=== PATIENT | female | born 1950 | race Caucasian/White ===

== ENCOUNTER 2023-11-16 10:29 | Outpatient (AMB) | payer MEDICARE, SELFPAY ==
--- NOTE | 2023-11-16 10:50 | A.OFFPC_ITS ---
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 Intake Note: New patient visit Allergies metformin Allergy (Mild, Verified 11/16/23 10:51) Rash methimazole [From Tapazole] Allergy (Mild, Verified 11/16/23 10:51) Rash Medication List - Last Reconciled 11/16/23 by Brigid Cardenas PA-C semaglutide (Ozempic) 0.25 mg (0.368 mL) subcut QWEEK Tobacco use date assessed: 11/16/23 Fall risk assessment: No Falls in past year Last assessed Fall Risk: 11/16/23 Dental Screening Dental Screen Date: 11/16/23 Did you have a dental visit in the last 12 months?: Yes Did you have a dental problem in the last 6 months where you did not have access to dental care?: No Was dental information given to patient?: Patient has dentist 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 She is transferring from [facility]. Endo: DM- She states that she is on januvia 100 mg and jardiance 10 mg. She was also on metformin 500 mg twice a day however states that since I left [facility] she has been unable to have this refilled by [facility]. She has been out of this for the last month and has not noticed any significant change in her blood sugar. States that her blood sugar this morning was about 130. She wants to stay off of the metformin because it causes GI upset and diarrhea. The extended-release also caused hives. She denies any frequent UTIs or yeast infections. No abdominal pain. Last a1c was 8. She goes annually for eyes, UTD. hypothyroid- on levothyroxine 112 mcg. Last TSH was WNL CV: Bp today is 138/68. She is on lisinopril 5 mg. Denies any chest pain or shortness a breath. Mammogram: June 2023 and wnl Bone density: Up-to-date Colonoscopy: UTD, PFSH Medical History (Updated 11/16/23 @ 14:54 by Brigid Cardenas PA-C) Hypothyroidism (acquired) Hypertension Poorly controlled type 2 diabetes mellitus Family History (Updated 11/16/23 @ 10:53 by Carmen Broderick CMA) Other Substance abuse Social History (Updated 11/16/23 @ 10:53 by Carmen Broderick CMA) Housing: House Patient Tobacco Use Status: Never used Tobacco e-Cigarette/Vaping Use: Never Used service: No Current occupational status: retired Cognitive needs: No Hearing needs: Yes (hearing aid, hard time hearing ) Vision needs: No Questionnaire PHQ-9 Over the last 2 weeks, how often have you been bothered by any of the following problems? 1. Little interest or pleasure in doing things: not at all 2. Feeling down, depressed, or hopeless: not at all 3. Trouble falling or staying asleep, or sleeping too much: not at all 4. Feeling tired or having little energy: not at all 5. Poor appetite or overeating: not at all 6. Feeling bad about yourself - or that you are a failure or have let yourself or your family down: not at all 7. Trouble concentrating on things, such as reading the newspaper or watching television: not at all 8. Moving or speaking so slowly that other people could have noticed. Or the opposite - being so fidgety or restless that you have been moving around a lot m ore than usual: not at all 9. Thoughts that you would be better off or of hurting yourself in some way: not at all Total score: 0 Depression Screening Interpretation: Negative Depression Screening Done: Yes 70180 - PHQ-9 Billing: Yes Source: Developed by Drs. Mike Allison, Kayla Lnada, Nikhil Zafar and colleagues, with an educational jyothi from [employer]. Thrive Questionnaire Date Thrive assessed: 11/16/23 I am a: Patient What is your living situation today?: I have a steady place to live Within the past 12 months, did the food you bought not last and you didn't have the money to get more?: Never true Within the past 12 months, did you worry whether your food would run out before you got money to buy more?: Never true Do you have trouble paying for medicines?: No Do you have trouble getting transportation to medical appointments?: No Do you have trouble paying your heating and electricity bill?: No Do you have trouble taking care of your child, family member or friend?: No Do you have trouble with day-to-day activities such as bathing, preparing meals, shopping, managing finances, etc.?: No Are you currently unemployed and looking for a job?: No Are you interested in more education?: No Please select the resources that you would like help with: None Currently or been in a relationship where the following occur: no concerns reported THRIVE Score: 0 AUDIT C Alcohol Use Questionnaire (AUDIT-C) 1. How often do you have a drink containing alcohol?: Never 3. How often do you have six or more drinks on one occasion?: Never Total Score: 0 LANG-7 AMB Questionnaire LANG-7 Date LANG - 7 assessed: 11/16/23 Feeling nervous, anxious, or on edge: 0 = Not at all Not being able to stop or control worryin = Not at all Worrying too much about different things: 0 = Not at all Trouble relaxin = Not at all Being so restless that it is hard to sit still: 0 = Not at all Becoming easily annoyed or irritable: 0 = Not at all Source: Developed by Drs. Mike Allison, Kayla Landa, Nikhil Zafar and colleagues, with an educational jyothi from [employer]. LANG-7 Assessment Billing LANG-7 Assessment Tool: LANG-7 Assessment 54734 Physical exam (Primary Care) Vital Signs: Last Vital Signs Temp 97.8 F 11/16/23 10:53 Pulse 49 L 11/16/23 10:53 BP 138/68 11/16/23 10:53 Pulse Ox 96 11/16/23 10:53 Oxygen Delivery Method Room Air 11/16/23 10:53 BMI result Body Mass Index 30.2 Tobacco/Smoking Status: Tobacco use Status Tobacco use date assessed 11/16/23 11/16/23 10:58 Patient Tobacco Use Status Never used Tobacco 11/16/23 10:58 e-Cigarette/Vaping Use Never Used 11/16/23 10:58 PHQ-9: PHQ-9 Score PHQ-9: Total score 0 11/16/23 14:14 Depression Screening Interpretation: Negative Thrive Assessment: Date of Thrive Assessment Date Thrive assessed 11/16/23 11/16/23 14:14 Currently or been in a relationship where the following occur: no concerns reported Const Orientation/consciousness: patient oriented x3 HENMT Ears: hearing grossly normal bilaterally Neck Thyroid: Thyroid normal Lymphatic: no lymphadenopathy noted Resp Auscultation: clear to auscultation bilaterally Cardio Rate: regular rate Rhythm: regular rhythm Heart sounds: S1 normal heart sound present and S2 normal heart sound present GI Inspection: Yes normal to inspection Palpation (GI): Soft to palpation and Other GI palpation findings present (nontender, no cva tenderness) Auscultation: normoactive bowel sounds Rectal Exam - Female: deferred Skin General skin exam: no rashes or lesions noted Neuro General: patient oriented x3, gait normal and no focal motor deficits Assessment and Plan Assessment & Plan (1) Poorly controlled type 2 diabetes mellitus: Code(s): E11.65 - Type 2 diabetes mellitus with hyperglycemia Plan: We will discontinue Januvia. I will stop the metformin as well. I will start her on Ozempic. Discussed risks and benefits and adverse effects of this medication including nausea, vomiting, increased risk of pancreatitis and thyroid malignancy. We will plan to slowly taper up. She can continue with the Jardiance. We discussed a diabetic diet. (2) Hypertension: Code(s): I10 - Essential (primary) hypertension Qualifiers: Hypertension type: primary hypertension Qualified Code(s): I10 - Essential (primary) hypertension Plan: Due to have refill on lisinopril. We will do this today. (3) Hypothyroidism (acquired): Code(s): E03.9 - Hypothyroidism, unspecified Plan: TSH ordered. Levothyroxine refilled. Orders: Orders Complete Blood Count Auto Diff Today E03.9 - Hypothyroidism, unspecified, E11.65 - Type 2 diabetes mellitus with hyperglycemia, I10 - Essential (primary) hypertension Comprehensive [place]. Panel Fast Today E03.9 - Hypothyroidism, unspecified, E11.65 - Type 2 diabetes mellitus with hyperglycemia, I10 - Essential (primary) hypertension Lipid Panel Today E03.9 - Hypothyroidism, unspecified, E11.65 - Type 2 diabetes mellitus with hyperglycemia, I10 - Essential (primary) hypertension Microalbumin, Random (w Creat) Today E03.9 - Hypothyroidism, unspecified, E11.65 - Type 2 diabetes mellitus with hyperglycemia, I10 - Essential (primary) hypertension Hemoglobin A1c Today E03.9 - Hypothyroidism, unspecified, E11.65 - Type 2 diabetes mellitus with hyperglycemia, I10 - Essential (primary) hypertension TSH reflex Free T4 Today E03.9 - Hypothyroidism, unspecified, E11.65 - Type 2 diabetes mellitus with hyperglycemia, I10 - Essential (primary) hypertension Medications: New semaglutide (Ozempic) for 4 weeks 0.25 mg (0.368 mL) subcut QWEEK 3 mL 3RF levothyroxine 112 mcg PO DAILY 90 tabs 3RF empagliflozin (Jardiance) 10 mg PO DAILY 90 tabs 3RF lisinopril 5 mg PO DAILY 90 tabs 3RF Coding Level of Care Code Est Pt Level 4 (83689) Complex EM visit Add On G2211 Diagnoses Poorly controlled type 2 diabetes mellitus E11.65 Primary hypertension I10 Hypertension type: primary hypertension Hypothyroidism (acquired) E03.9 Additional Codes LANG-7 Assessment Billing - LANG-7 Assessment Tool: LANG-7 Assessment [id number] ([id number])
[2023-11-16 10:53] VITALS: BP 138/68; PULSE 54; TEMP 36.6; O2SAT 96; BMI 30.2
== END 2023-11-16 11:19 | disposition home or self-care (01) ==
PROVIDERS: PCP Physician Assistant; Visit Provider Physician Assistant
DX: E11.65 Type 2 diabetes mellitus with hyperglycemia (principal); I10 Essential (primary) hypertension; E03.9 Hypothyroidism, unspecified
CPT/HCPCS: 99214; G2211

== ENCOUNTER 2023-11-17 07:26 | Outpatient (REF) | payer MEDICARE, SELFPAY ==
[2023-11-17 11:49] LABS: MANUAL DIFF FLAG NO
[2023-11-17 11:54] LABS: Basophils Absolute Auto 0.1 X10*3/uL (0.0-0.2); Basophils Percent Auto 0.7 % (0-2); Eosinophils Absolute Auto 0.2 X10*3/uL (0.0-0.4); Eosinophils Percent Auto 2.6 % (0-4); Hematocrit 40.7 % (37.0-47.0); Hemoglobin 13.2 g/dl (12.0-16.0); Imm Gran Abs Auto 0.02 X10*3/uL (0.00-0.03); Imm Gran Pct Auto 0.3 % (0.0-0.4); Lymphocytes Absolute Auto 2.2 X10*3/uL (1.2-4.9); Lymphocytes Percent Auto 31.4 % (20-40); Mean Corpuscular HGB Conc 32.4 g/dl (31.0-35.0); Mean Corpuscular Hemoglobin 30.1 pg (27.0-33.0); Mean Corpuscular Volume 92.9 fL (80.0-98.0); Mean Platelet Volume 10.4 fL (9.4-12.3); Monocytes Absolute Auto 0.7 X10*3/uL (0.1-1.2); Neutrophils Absolute Auto 3.8 x10*3/uL (2.0-8.3); Platelet Count 259 X10*3/uL (160-400); Red Blood Count 4.38 X10*6/uL (4.20-5.50); Red Cell Distribution Width 13.5 % (11.0-16.0); White Blood Count 6.9 X10*3/uL (4.8-10.8)
[2023-11-17 12:02] LABS: Estimated Average Glucose 169 mg/dL; Hemoglobin A1c % 7.5 % (<6.0)
[2023-11-17 12:24] LABS: Alanine Aminotransferase 12 U/L (0-31); Albumin Level 4.1 g/dL (3.5-5.0); Alkaline Phosphatase 68 U/L (39-117); Anion Gap 12 (12-20); Aspartate Amino Transferase 15 U/L (5-31); Bilirubin Total 0.5 mg/dL (0.0-1.0); Blood Urea Nitrogen 17 mg/dL (9-16); Calcium 9.7 mg/dL (8.4-10.2); Carbon Dioxide 26 mmol/L (22-29); Chloride 104 mmol/L (96-108); Cholesterol 246 mg/dL (<200); Estimated Glomerular Filt Rate > 60; Glucose Fasting 147 mg/dL (60-99); HDL Cholesterol 72 mg/dL (>40); LDL Cholesterol Calculated 149 mg/dL (<100); Potassium 4.4 mmol/L (3.3-5.1); Sodium 138 mmol/L (135-145); Total Protein 7.3 g/dL (6.5-8.0); Triglycerides 125 mg/dL (<150)
[2023-11-17 12:33] LABS: TSH reflex Free T4 4.91 uIU/mL (0.32-4.0)
[2023-11-17 12:49] LABS: Creatinine Urine 30.79 mg/dL; Microalbumin Urine < 5.0 mg/L
[2023-11-17 13:07] LABS: Free T4 (Free Thyroxine) 1.12 ng/dL (0.71-1.85)
== END 2023-11-17 07:27 | disposition home or self-care (01) ==
LOC: HO.WFDLDS 07:26
PROVIDERS: Visit Provider Physician Assistant
DX: E03.9 Hypothyroidism, unspecified (principal); I10 Essential (primary) hypertension; E11.65 Type 2 diabetes mellitus with hyperglycemia
CPT/HCPCS: 36415; 80053; 80061; 82043; 82570; 83036; 84439; 84443; 85025

== ENCOUNTER 2023-12-21 08:16 | Outpatient (AMB) | payer MEDICARE, SELFPAY ==
--- NOTE | 2023-12-21 08:21 | MHC.PC.OV ---
Vital Signs 12/21/23 08:23 Pulse 53 Pulse Source Pulse Oximeter Pulse Oximetry (%) 94 Oxygen Delivery Method Room Air Intake Visit Reasons: DM Intake Note: Follow up. A1c was 7.5 on 11/17/23. Did not get increase in thyroid medication, we were not able to connect on the phone. Desk Top Publisher Required: No Allergies metformin Allergy (Mild, Verified 12/21/23 08:22) Rash methimazole [From Tapazole] Allergy (Mild, Verified 12/21/23 08:22) Rash Medication List - Last Reconciled 12/21/23 by Brigid Cardenas PA-C empagliflozin (Jardiance) 10 mg PO DAILY levothyroxine 125 mcg PO DAILY lisinopril 5 mg PO DAILY Tobacco use date assessed: 11/16/23 Dental Screening Dental Screen Date: 11/16/23 HPI DM HPI Details Pt is a 73 y/o female with a significant past medical history of type 2 diabetes, hypertension, hypothyroidism who presents today to [facility]. She is transferring from [facility]. Endo: DM- She was recently started on ozempic and continued on jardiance 10 mg. Metformin caused too much GI distress. The extended-release also caused hives. denies any frequent UTIs or yeast infections. No abdominal pain. Last a1c was 7.5. She goes annually for eyes, UTD. hypothyroid- was tsh was elevated in October. Increased dosage of the levothyroxine to 125 mcg. Tolerating well. CV: Bp today is WNL. She is on lisinopril 5 mg. Denies any chest pain or shortness a breath. Last cholesterol was elevated. declines medications Mammogram: June 2023 and wnl Bone density: Up-to-date Colonoscopy: UTD, [facility] Medical History (Updated 12/21/23 @ 09:00 by Brigid Cardenas PA-C) Dyslipidemia Hypothyroidism (acquired) Hypertension Poorly controlled type 2 diabetes mellitus Family History (Updated 11/16/23 @ 10:53 by Carmen Broderick CMA) Other Substance abuse Social History (Updated 11/16/23 @ 10:53 by Carmen Broderick CMA) Housing: House Patient Tobacco Use Status: Never used Tobacco e-Cigarette/Vaping Use: Never Used service: No Current occupational status: retired Cognitive needs: No Hearing needs: Yes (hearing aid, hard time hearing ) Vision needs: No Questionnaire Thrive Questionnaire Date Thrive assessed: 11/16/23 LANG-7 AMB Questionnaire LANG-7 Date LANG - 7 assessed: 11/16/23 Source: Developed by Drs. Mike Allison, Kayla Landa, Nikhil Zafar and colleagues, with an educational jyothi from [employer]. Physical exam (Primary Care) Vital Signs: Last Vital Signs Pulse 53 12/21/23 08:23 Pulse Ox 94 12/21/23 08:23 Oxygen Delivery Method Room Air 12/21/23 08:23 Tobacco/Smoking Status: Tobacco use Status Tobacco use date assessed 11/16/23 12/21/23 08:21 Patient Tobacco Use Status Never used Tobacco 12/21/23 08:21 e-Cigarette/Vaping Use Never Used 12/21/23 08:21 Thrive Assessment: Date of Thrive Assessment Date Thrive assessed 11/16/23 12/21/23 08:21 Const Orientation/consciousness: patient oriented x3 Neck Neck: Yes no lymphadenopathy Thyroid: Thyroid normal Carotids: no bruits Resp Auscultation: clear to auscultation bilaterally Cardio Rate: regular rate Rhythm: regular rhythm Heart sounds: S1 normal heart sound present and S2 normal heart sound present Peripheral pulses: dorsalis pedis present Neuro General: patient oriented x3, gait normal and no focal motor deficits Extrem General: Yes normal to inspection Results Reviewed Results Reviewed: Laboratory Tests 11/17/23 07:27 Hemoglobin A1c % 7.5 H Triglycerides 125 Cholesterol 246 H LDL Cholesterol, Calc 149 H HDL Cholesterol 72 TSH 4.91 H Free T4 1.12 Assessment and Plan Assessment & Plan (1) Poorly controlled type 2 diabetes mellitus: Code(s): E11.65 - Type 2 diabetes mellitus with hyperglycemia Plan: increase ozempic to 0.5 mg weekly. start glipizide 5 mg er. discussed risks and benefits and adverse effects such as hypoglycemia. return in 1 month with labs prior (2) Hypertension: Code(s): I10 - Essential (primary) hypertension Qualifiers: Hypertension type: primary hypertension Qualified Code(s): I10 - Essential (primary) hypertension Plan: continue current plan. (3) Hypothyroidism (acquired): Code(s): E03.9 - Hypothyroidism, unspecified Plan: recheck tsh prior to next appointment (4) Dyslipidemia: Code(s): E78.5 - Hyperlipidemia, unspecified Plan: will try diet changes, suspects it will be a bit easier now that she is on ozempic. will check in 6 months. declines medication. Orders: Orders Comprehensive Met. Panel Today E03.9 - Hypothyroidism, unspecified, E11.65 - Type 2 diabetes mellitus with hyperglycemia, I10 - Essential (primary) hypertension Hemoglobin A1c Today E03.9 - Hypothyroidism, unspecified, E11.65 - Type 2 diabetes mellitus with hyperglycemia, I10 - Essential (primary) hypertension Medications: New semaglutide (Ozempic) 0.5 mg (0.736 mL) subcut QWEEK 3 mL 3RF glipizide ER 5 mg PO DAILY 90 tabs 1RF Coding Level of Care Code Est Pt Level 4 (62935) Complex EM visit Add On G2211 Diagnoses Poorly controlled type 2 diabetes mellitus E11.65 Primary hypertension I10 Hypertension type: primary hypertension Hypothyroidism (acquired) E03.9 Dyslipidemia E78.5
[2023-12-21 08:23] VITALS: PULSE 53; O2SAT 94
== END 2023-12-21 09:01 | disposition home or self-care (01) ==
PROVIDERS: PCP Physician Assistant; Visit Provider Physician Assistant
DX: E11.65 Type 2 diabetes mellitus with hyperglycemia (principal); I10 Essential (primary) hypertension; E03.9 Hypothyroidism, unspecified; E78.5 Hyperlipidemia, unspecified
CPT/HCPCS: 99214; G2211

== ENCOUNTER 2024-01-23 07:40 | Outpatient (REF) | payer MEDICARE, SELFPAY ==
[2024-01-23 11:41] LABS: Estimated Average Glucose 157 mg/dL; Hemoglobin A1c % 7.1 % (<6.0)
[2024-01-23 12:25] LABS: Alanine Aminotransferase 12 U/L (0-31); Alkaline Phosphatase 61 U/L (39-117); Anion Gap 14 (12-20); Aspartate Amino Transferase 13 U/L (5-31); Bilirubin Total 0.4 mg/dL (0.0-1.0); Blood Urea Nitrogen 17 mg/dL (9-16); Calcium 9.9 mg/dL (8.4-10.2); Carbon Dioxide 26 mmol/L (22-29); Chloride 105 mmol/L (96-108); Estimated Glomerular Filt Rate > 60; Glucose Random 121 mg/dL (60-115); Potassium 4.8 mmol/L (3.3-5.1); Sodium 140 mmol/L (135-145); Total Protein 7.2 g/dL (6.5-8.0)
[2024-01-23 12:41] LABS: TSH reflex Free T4 0.89 uIU/mL (0.32-4.0)
== END 2024-01-23 07:41 | disposition home or self-care (01) ==
LOC: HO.WFDLDS 07:40
PROVIDERS: Visit Provider Physician Assistant
DX: E03.9 Hypothyroidism, unspecified (principal); E11.65 Type 2 diabetes mellitus with hyperglycemia; I10 Essential (primary) hypertension
CPT/HCPCS: 36415; 80053; 83036; 84443

== ENCOUNTER 2024-01-25 08:22 | Outpatient (AMB) | payer MEDICARE, SELFPAY ==
--- NOTE | 2024-01-25 08:28 | MHC.PC.OV ---
Vital Signs 01/25/24 08:33 Height 5 ft 3.07 in Weight 169 lb 8 oz BMI 30.0 BP 122/58 L Blood Pressure Location Lt brachial Position Sitting Respiration 14 Pulse 63 Pulse Source Pulse Oximeter Pulse Oximetry (%) 99 Oxygen Delivery Method Room Air Intake Visit Reasons: dm and thyroid Intake Note: Follow up. Lab results Quantitative Equity Head Required: No Allergies metformin Allergy (Mild, Verified 01/25/24 08:33) Rash methimazole [From Tapazole] Allergy (Mild, Verified 01/25/24 08:33) Rash Medication List - Last Reconciled 01/25/24 by Brigid Cardenas PA-C empagliflozin (Jardiance) 10 mg PO DAILY levothyroxine 125 mcg PO DAILY lisinopril 5 mg PO DAILY Tobacco use date assessed: 11/16/23 Dental Screening Dental Screen Date: 11/16/23 HPI dm and thyroid HPI Details Pt is a 73 y/o female with a significant past medical history of type 2 diabetes, hypertension, hypothyroidism who presents today to [facility]. She is transferring from [facility]. Endo: DM- She was recently started on ozempic and continued on jardiance 10 mg and glipizide. Her A1c went from 7.5 to 7.1. No hypoglycemic events. Metformin caused too much GI distress. The extended-release also caused hives. denies any frequent UTIs or yeast infections. No abdominal pain. Last a1c was 7.5. She goes annually for eyes, UTD. hypothyroid- was tsh was elevated in October and now normal. Increased dosage of the levothyroxine to 125 mcg. Tolerating well. CV: Bp today is 122/58. She is on lisinopril 5 mg. Denies any chest pain or shortness a breath. Last cholesterol was elevated. declines medications Mammogram: June 2023 and wnl Bone density: 2 years ago Colonoscopy: UTD, [facility] Medical History (Updated 12/21/23 @ 09:00 by Brigid Cardenas PA-C) Dyslipidemia Hypothyroidism (acquired) Hypertension Poorly controlled type 2 diabetes mellitus Family History (Updated 11/16/23 @ 10:53 by Carmen Broderick CMA) Other Substance abuse Social History (Updated 11/16/23 @ 10:53 by Carmen Broderick CMA) Housing: House Patient Tobacco Use Status: Never used Tobacco e-Cigarette/Vaping Use: Never Used service: No Current occupational status: retired Cognitive needs: No Hearing needs: Yes (hearing aid, hard time hearing ) Vision needs: No Questionnaire Thrive Questionnaire Date Thrive assessed: 11/16/23 LANG-7 AMB Questionnaire LANG-7 Date LANG - 7 assessed: 11/16/23 Source: Developed by Drs. Mike Allison, Kayla Landa, Nikhil Zafar and colleagues, with an educational jyothi from [employer]. Physical exam (Primary Care) Vital Signs: Last Vital Signs Pulse 63 01/25/24 08:33 Resp 14 01/25/24 08:33 BP 122/58 L 01/25/24 08:33 Pulse Ox 99 01/25/24 08:33 Oxygen Delivery Method Room Air 01/25/24 08:33 BMI result Body Mass Index 30.0 Tobacco/Smoking Status: Tobacco use Status Tobacco use date assessed 11/16/23 01/25/24 08:32 Patient Tobacco Use Status Never used Tobacco 01/25/24 08:32 e-Cigarette/Vaping Use Never Used 01/25/24 08:32 Thrive Assessment: Date of Thrive Assessment Date Thrive assessed 11/16/23 01/25/24 08:32 Const Orientation/consciousness: patient oriented x3 Neck Neck: Yes no lymphadenopathy Thyroid: Thyroid normal Carotids: no bruits Resp Auscultation: clear to auscultation bilaterally Cardio Rate: regular rate Rhythm: regular rhythm Heart sounds: S1 normal heart sound present and S2 normal heart sound present Peripheral pulses: dorsalis pedis present Neuro General: patient oriented x3, gait normal and no focal motor deficits Extrem General: Yes normal to inspection Results Reviewed Results Reviewed: Laboratory Tests 11/17/23 01/23/24 07:27 07:41 Random Glucose 121 H Estimat Average Glucose 157 Hemoglobin A1c % 7.5 H 7.1 H TSH 4.91 H 0.89 Assessment and Plan Assessment & Plan (1) Poorly controlled type 2 diabetes mellitus: Code(s): E11.65 - Type 2 diabetes mellitus with hyperglycemia Plan: start ozempic 1 mg weekly. increased jardiance to 25 mg. Stop glipizide. return in 3 months to recheck labs and f.u (2) Hypertension: Code(s): I10 - Essential (primary) hypertension Qualifiers: Hypertension type: primary hypertension Qualified Code(s): I10 - Essential (primary) hypertension Plan: continue current plan (3) Hypothyroidism (acquired): Code(s): E03.9 - Hypothyroidism, unspecified Plan: tsh wnl now Plan bone density ordered Orders: Orders Comprehensive [place]. Panel Fast Today E03.9 - Hypothyroidism, unspecified, E11.65 - Type 2 diabetes mellitus with hyperglycemia, I10 - Essential (primary) hypertension Hemoglobin A1c Today E03.9 - Hypothyroidism, unspecified, E11.65 - Type 2 diabetes mellitus with hyperglycemia, I10 - Essential (primary) hypertension XR DEXA axial skeleton Today Z78.0 - Asymptomatic menopausal state Medications: New semaglutide (Ozempic) 1 mg (0.75 mL) subcut QWEEK 3 mL 4RF empagliflozin (Jardiance) 25 mg PO DAILY 90 tabs 3RF Discontinued empagliflozin (Jardiance) Discontinued Reason: Doctor's Order 10 mg PO DAILY 90 tabs 3RF Coding Level of Care Code Est Pt Level 4 (77828) Complex EM visit Add On G2211 Diagnoses Poorly controlled type 2 diabetes mellitus E11.65 Primary hypertension I10 Hypertension type: primary hypertension Hypothyroidism (acquired) E03.9
[2024-01-25 08:33] VITALS: BP 122/58; PULSE 63; RESP 14; O2SAT 99
== END 2024-01-25 09:38 | disposition home or self-care (01) ==
PROVIDERS: PCP Physician Assistant; Visit Provider Physician Assistant
DX: E11.65 Type 2 diabetes mellitus with hyperglycemia (principal); I10 Essential (primary) hypertension; E03.9 Hypothyroidism, unspecified
CPT/HCPCS: 99214; G2211

== ENCOUNTER 2024-04-23 07:44 | Outpatient (REF) | payer MEDICARE, SELFPAY ==
[2024-04-23 11:45] LABS: Estimated Average Glucose 157 mg/dL; Hemoglobin A1C 185.8095 umol/L; Hemoglobin A1c % 7.1 % (<6.0)
[2024-04-23 12:18] LABS: Alanine Aminotransferase 15 U/L (0-31); Alkaline Phosphatase 73 U/L (39-117); Anion Gap 8 (12-20); Aspartate Amino Transferase 20 U/L (5-31); Bilirubin Total 0.4 mg/dL (0.0-1.0); Blood Urea Nitrogen 16 mg/dL (9-16); Calcium 8.7 mg/dL (8.4-10.2); Carbon Dioxide 29 mmol/L (22-29); Chloride 105 mmol/L (96-108); Estimated Glomerular Filt Rate > 60; Glucose Fasting 137 mg/dL (60-99); Potassium 4.6 mmol/L (3.3-5.1); Sodium 137 mmol/L (135-145)
== END 2024-04-23 07:45 | disposition home or self-care (01) ==
LOC: HO.WFDLDS 07:44
PROVIDERS: Visit Provider Physician Assistant
DX: E11.65 Type 2 diabetes mellitus with hyperglycemia (principal); I10 Essential (primary) hypertension; E03.9 Hypothyroidism, unspecified
CPT/HCPCS: 36415; 80053; 83036

== ENCOUNTER 2024-04-26 08:33 | Outpatient (AMB) | payer MEDICARE, SELFPAY ==
--- NOTE | 2024-04-26 08:54 | MHC.PC.OV ---
Vital Signs 04/26/24 08:57 Height 5 ft 3.07 in Weight 167 lb 2 oz BMI 29.5 BP 110/68 Blood Pressure Location Lt brachial Pulse 45 L Pulse Source Pulse Oximeter Pulse Oximetry (%) 95 Oxygen Delivery Method Room Air Intake Visit Reasons: DM Intake Note: Diabetes follow up Allergies metformin Allergy (Mild, Verified 04/26/24 08:55) Rash methimazole [From Tapazole] Allergy (Mild, Verified 04/26/24 08:55) Rash Medication List - Last Reconciled 04/26/24 by Brigid Cardenas PA-C empagliflozin (Jardiance) 25 mg PO DAILY levothyroxine 125 mcg PO DAILY lisinopril 5 mg PO DAILY Tobacco use date assessed: 11/16/23 Dental Screening Dental Screen Date: 11/16/23 HPI DM HPI Details Pt is a 73 y/o female with a significant past medical history of type 2 diabetes, hypertension, hypothyroidism who presents today to [facility]. She is transferring from [facility]. Endo: DM- She was recently started on ozempic 1 mg and increased jardiance to 25 mg. She was d/c on glip. No hypoglycemic events. Her A1c remain the same at 7.1. Metformin caused too much GI distress. The extended-release also caused hives. denies any frequent UTIs or yeast infections. No abdominal pain.. She goes annually for eyes, UTD. hypothyroid- was tsh was elevated in October and now normal. Increased dosage of the levothyroxine to 125 mcg. Tolerating well. CV: Bp today is 110/65. Her initial pulse in the office was 45 but it does go up to 55. She states that this is normal for her. She constantly monitors her heart rate at home along with her blood pressure.. She is on lisinopril 5 mg. Denies any chest pain, dizziness, palpitations or shortness a breath. Last cholesterol was elevated. declines medications. Musculoskeletal: She does complain today of right knee pain and stiffness. States that it is worse in the morning and gets better within the 1st few steps. Sometimes it does feel slightly unstable going down stairs but she attributes this to the stiffness. At night it does seem. She has not tried anything for this. She has not like the idea of taking medications. She does not want to go to physical therapy. There was no trauma. This has been going on for quite some time and slowly worsening. Mammogram: June 2023 and wnl Bone density: 2 years ago-states that she needs to call and book this. Colonoscopy: UTD, PFSH Medical History (Updated 04/26/24 @ 11:44 by Brigid Cardenas PA-C) Dyslipidemia Hypothyroidism (acquired) Hypertension Poorly controlled type 2 diabetes mellitus Family History (Updated 11/16/23 @ 10:53 by Carmen Broderick CMA) Other Substance abuse Social History (Updated 11/16/23 @ 10:53 by Carmen Broderick CMA) Housing: House Patient Tobacco Use Status: Never used Tobacco e-Cigarette/Vaping Use: Never Used service: No Current occupational status: retired Cognitive needs: No Hearing needs: Yes (hearing aid, hard time hearing ) Vision needs: No Questionnaire PHQ-9 Over the last 2 weeks, how often have you been bothered by any of the following problems? 1. Little interest or pleasure in doing things: not at all 2. Feeling down, depressed, or hopeless: not at all 4. Feeling tired or having little energy: not at all 5. Poor appetite or overeating: several days 6. Feeling bad about yourself - or that you are a failure or have let yourself or your family down: not at all 7. Trouble concentrating on things, such as reading the newspaper or watching television: not at all 8. Moving or speaking so slowly that other people could have noticed. Or the opposite - being so fidgety or restless that you have been moving around a lot more than usual: not at all 9. Thoughts that you would be better off or of hurting yourself in some way: not at all Source: Developed by Drs. Mike Allison, Kayla Landa, Nikhil Zafar and colleagues, with an educational jyothi from [employer]. Thrive Questionnaire Date Thrive assessed: 11/16/23 I am a: Patient What is your living situation today?: I have a steady place to live Within the past 12 months, did the food you bought not last and you didn't have the money to get more?: Never true Within the past 12 months, did you worry whether your food would run out before you got money to buy more?: Never true Do you have trouble paying for medicines?: No Do you have trouble getting transportation to medical appointments?: No Do you have trouble paying your heating and electricity bill?: No Do you have trouble taking care of your child, family member or friend?: No Do you have trouble with day-to-day activities such as bathing, preparing meals, shopping, managing finances, etc.?: No Are you currently unemployed and looking for a job?: No Are you interested in more education?: No Please select the resources that you would like help with: None Currently or been in a relationship where the following occur: No concerns reported THRIVE Score: 0 AUDIT C Alcohol Use Questionnaire (AUDIT-C) 1. How often do you have a drink containing alcohol?: Never Total Score: 0 LANG-7 AMB Questionnaire LANG-7 Date LANG - 7 assessed: 11/16/23 Feeling nervous, anxious, or on edge: 0 = Not at all Not being able to stop or control worryin = Not at all Worrying too much about different things: 0 = Not at all Trouble relaxin = Not at all Being so restless that it is hard to sit still: 0 = Not at all Becoming easily annoyed or irritable: 0 = Not at all Feeling afraid as if something awful might happen: 0 = Not at all Total LANG-7 score (0-4 normal; 5-9 mild; 10-14 moderate; 15-21 severe): 0 Source: Developed by Drs. Mike Allison, Kayla Landa, Nikhil Zafar and colleagues, with an educational jyothi from [employer]. Physical exam (Primary Care) Vital Signs: Last Vital Signs Pulse 45 L 04/26/24 08:57 BP 110/68 04/26/24 08:57 Pulse Ox 95 04/26/24 08:57 Oxygen Delivery Method Room Air 04/26/24 08:57 BMI result Body Mass Index 29.5 Tobacco/Smoking Status: Tobacco use Status Tobacco use date assessed 11/16/23 04/26/24 08:59 Patient Tobacco Use Status Never used Tobacco 04/26/24 08:59 e-Cigarette/Vaping Use Never Used 04/26/24 08:59 Thrive Assessment: Date of Thrive Assessment Date Thrive assessed 11/16/23 04/26/24 08:59 Currently or been in a relationship where the following occur: No concerns reported Const Orientation/consciousness: patient oriented x3 HENMT Ears: hearing grossly normal bilaterally Neck Thyroid: Thyroid normal Lymphatic: no lymphadenopathy noted Resp Auscultation: clear to auscultation bilaterally Cardio Rate: regular rate Rhythm: regular rhythm Heart sounds: S1 normal heart sound present and S2 normal heart sound present GI Inspection: Yes normal to inspection Palpation (GI): Soft to palpation and Other GI palpation findings present (nontender, no cva tenderness) Auscultation: normoactive bowel sounds Rectal Exam - Female: deferred Skin General skin exam: no rashes or lesions noted Neuro General: patient oriented x3, gait normal and no focal motor deficits Results Reviewed Results Reviewed: Laboratory Tests 11/17/23 04/23/24 07:33 07:46 Sodium 137 Potassium 4.6 Chloride 105 Carbon Dioxide 29 Anion Gap 8 L BUN 16 Creatinine 0.75 Estimated GFR > 60 Fasting Glucose 137 H Estimat Average Glucose 157 Hemoglobin A1c % 7.1 H Calcium 8.7 D AST 20 ALT 15 Alkaline Phosphatase 73 Urine Creatinine 30.79 Urine Microalbumin < 5.0 Microalb/Creat Ratio TNP Coding Level of Care Code Est Pt Level 4 (14227) Complex EM visit Add On G2211 Diagnoses Poorly controlled type 2 diabetes mellitus E11.65 Primary hypertension I10 Hypertension type: primary hypertension Hypothyroidism (acquired) E03.9 Dyslipidemia E78.5 Right knee pain M25.561 Assessment & Plan Assessment & Plan (1) Poorly controlled type 2 diabetes mellitus: Code(s): E11.65 - Type 2 diabetes mellitus with hyperglycemia Category: Medical Plan: Increase Ozempic to 2 mg. Continue with the Jardiance. Denies any hypoglycemic events. Does not want to CGM yet. (2) Hypertension: Code(s): I10 - Essential (primary) hypertension Category: Medical Qualifiers: Hypertension type: primary hypertension Qualified Code(s): I10 - Essential (primary) hypertension Plan: Continue current regimen (3) Hypothyroidism (acquired): Code(s): E03.9 - Hypothyroidism, unspecified Category: Medical Plan: Continue levothyroxine. We will monitor. (4) Dyslipidemia: Code(s): E78.5 - Hyperlipidemia, unspecified Category: Medical Plan: Trying to follow a low-fat diet. Declines statin. (5) Right knee pain: Code(s): M25.561 - Pain in right knee Category: Medical Plan: X-ray ordered. Plan Labs, carotid ultrasound, knee x-ray ordered. We will follow up pending test results. She will follow up in 3 months. Sooner if needed. Patient understands and agrees with the plan. Orders: Orders B Type Natriuretic Peptide Today E03.9 - Hypothyroidism, unspecified, E11.65 - Type 2 diabetes mellitus with hyperglycemia, E78.5 - Hyperlipidemia, unspecified, I10 - Essential (primary) hypertension Complete Blood Count Auto Diff Today E03.9 - Hypothyroidism, unspecified, E11.65 - Type 2 diabetes mellitus with hyperglycemia, E78.5 - Hyperlipidemia, unspecified, I10 - Essential (primary) hypertension TSH reflex Free T4 Today E03.9 - Hypothyroidism, unspecified, E11.65 - Type 2 diabetes mellitus with hyperglycemia, E78.5 - Hyperlipidemia, unspecified, I10 - Essential (primary) hypertension Hemoglobin A1c Today E03.9 - Hypothyroidism, unspecified, E11.65 - Type 2 diabetes mellitus with hyperglycemia, E78.5 - Hyperlipidemia, unspecified, I10 - Essential (primary) hypertension US carotid duplex BI Today E11.65 - Type 2 diabetes mellitus with hyperglycemia, E78.5 - Hyperlipidemia, unspecified, I10 - Essential (primary) hypertension Comprehensive [place]. Panel Fast Today E03.9 - Hypothyroidism, unspecified, E11.65 - Type 2 diabetes mellitus with hyperglycemia, E78.5 - Hyperlipidemia, unspecified, I10 - Essential (primary) hypertension Lipid Panel Today E03.9 - Hypothyroidism, unspecified, E11.65 - Type 2 diabetes mellitus with hyperglycemia, E78.5 - Hyperlipidemia, unspecified, I10 - Essential (primary) hypertension XR knee RT 2V Today M25.561 - Pain in right knee, M25.562 - Pain in left knee Medications: New semaglutide (Ozempic) 2 mg (0.75 mL) subcut QWEEK 3 mL 6RF
[2024-04-26 08:57] VITALS: BP 110/68; PULSE 45; O2SAT 95; BMI 29.5
== END 2024-04-26 09:43 | disposition home or self-care (01) ==
LOC: HO.HMCFM 08:34
PROVIDERS: PCP Physician Assistant; Visit Provider Physician Assistant
DX: E11.65 Type 2 diabetes mellitus with hyperglycemia (principal); I10 Essential (primary) hypertension; E03.9 Hypothyroidism, unspecified; E78.5 Hyperlipidemia, unspecified; M25.561 Pain in right knee

== ENCOUNTER → 2024-04-26 08:33 | Outpatient (BNVA) | payer MEDICARE, SELFPAY | PROVIDERS: PCP Physician Assistant; Visit Provider Physician Assistant | DX: E11.65 Type 2 diabetes mellitus with hyperglycemia (principal); I10 Essential (primary) hypertension; E03.9 Hypothyroidism, unspecified; E78.5 Hyperlipidemia, unspecified; M25.561 Pain in right knee | CPT/HCPCS: 99212 ==

== ENCOUNTER 2024-05-09 15:20 | Outpatient (REF) | payer MEDICARE, SELFPAY | END 2024-05-09 15:21 | disposition home or self-care (01) | LOC: HO.US 15:20 | PROVIDERS: PCP Physician Assistant; Visit Provider Physician Assistant | DX: R42 Dizziness and giddiness (principal); I10 Essential (primary) hypertension; E78.5 Hyperlipidemia, unspecified; E11.65 Type 2 diabetes mellitus with hyperglycemia | CPT/HCPCS: 93880 ==

== ENCOUNTER 2024-07-30 09:33 | Outpatient (REF) | payer MEDICARE, SELFPAY ==
[2024-07-30 11:30] LABS: MANUAL DIFF FLAG NO
[2024-07-30 11:39] LABS: Basophils Percent Auto 0.6 % (0-2); Eosinophils Absolute Auto 0.1 X10*3/uL (0.0-0.4); Eosinophils Percent Auto 1.3 % (0-4); Hematocrit 41.1 % (37.0-47.0); Hemoglobin 13.8 g/dl (12.0-16.0); Imm Gran Abs Auto 0.02 X10*3/uL (0.00-0.03); Imm Gran Pct Auto 0.3 % (0.0-0.4); Mean Corpuscular HGB Conc 33.6 g/dl (31.0-35.0); Mean Corpuscular Hemoglobin 30.1 pg (27.0-33.0); Mean Corpuscular Volume 89.7 fL (80.0-98.0); Mean Platelet Volume 9.7 fL (9.4-12.3); Monocytes Absolute Auto 0.6 X10*3/uL (0.1-1.2); Monocytes Percent Auto 8.7 % (2-11); Neutrophils Absolute Auto 4.2 x10*3/uL (2.0-8.3); Neutrophils Percent Auto 60.1 % (45-73); Platelet Count 274 X10*3/uL (160-400); Red Blood Count 4.58 X10*6/uL (4.20-5.50); Red Cell Distribution Width 13.2 % (11.0-16.0)
[2024-07-30 11:47] LABS: B Type Natriuretic Peptide 34 pg/mL (<100)
[2024-07-30 12:06] LABS: Estimated Average Glucose 154 mg/dL; Hemoglobin A1C 195.2394 umol/L
[2024-07-30 12:23] LABS: Alanine Aminotransferase 10 U/L (0-31); Albumin Level 4.1 g/dL (3.5-5.0); Alkaline Phosphatase 72 U/L (39-117); Anion Gap 13 (12-20); Aspartate Amino Transferase 16 U/L (5-31); Bilirubin Total 0.5 mg/dL (0.0-1.0); Blood Urea Nitrogen 15 mg/dL (9-16); Calcium 9.5 mg/dL (8.4-10.2); Carbon Dioxide 25 mmol/L (22-29); Chloride 105 mmol/L (96-108); Cholesterol 218 mg/dL (<200); Estimated Glomerular Filt Rate > 60; Glucose Fasting 135 mg/dL (60-99); HDL Cholesterol 64 mg/dL (>40); LDL Cholesterol Calculated 129 mg/dL (<100); Potassium 4.6 mmol/L (3.3-5.1); Sodium 138 mmol/L (135-145); Total Protein 7.7 g/dL (6.5-8.0); Triglycerides 126 mg/dL (<150)
[2024-07-30 12:40] LABS: TSH reflex Free T4 0.52 uIU/mL (0.32-4.0)
== END 2024-07-30 09:34 | disposition home or self-care (01) ==
LOC: HO.WFDLDS 09:33
PROVIDERS: Visit Provider Physician Assistant
DX: E03.9 Hypothyroidism, unspecified (principal); I10 Essential (primary) hypertension; E11.65 Type 2 diabetes mellitus with hyperglycemia; E78.5 Hyperlipidemia, unspecified
CPT/HCPCS: 36415; 80053; 80061; 83036; 83880; 84443; 85025

== ENCOUNTER → 2024-08-01 08:21 | Outpatient (BNVA) | payer MEDICARE, SELFPAY | PROVIDERS: PCP Physician Assistant; Visit Provider Physician Assistant | DX: E11.9 Type 2 diabetes mellitus without complications (principal); E78.5 Hyperlipidemia, unspecified; E03.9 Hypothyroidism, unspecified; I10 Essential (primary) hypertension; M25.561 Pain in right knee | CPT/HCPCS: 99212 ==

== ENCOUNTER 2024-10-29 07:44 | Outpatient (REF) | payer MEDICARE, SELFPAY ==
[2024-10-29 11:39] LABS: Estimated Average Glucose 154 mg/dL; Total Hemoglobin (HGBA1C) 3420.0688 umol/L
[2024-10-29 11:58] LABS: Alanine Aminotransferase 10 U/L (0-31); Albumin Level 3.8 g/dL (3.5-5.0); Alkaline Phosphatase 72 U/L (39-117); Anion Gap 11 (12-20); Aspartate Amino Transferase 17 U/L (5-31); Bilirubin Total 0.4 mg/dL (0.0-1.0); Blood Urea Nitrogen 14 mg/dL (9-16); Calcium 8.9 mg/dL (8.4-10.2); Carbon Dioxide 25 mmol/L (22-29); Chloride 107 mmol/L (96-108); Estimated Glomerular Filt Rate > 60; Glucose Fasting 135 mg/dL (60-99); Potassium 4.3 mmol/L (3.3-5.1); Sodium 139 mmol/L (135-145); Total Protein 6.7 g/dL (6.5-8.0)
[2024-10-29 13:10] LABS: Creatinine Urine 65.13 mg/dL; Microalbum/Creatinine Ratio Ur 64.4 ug/mg cr (<30)
== END 2024-10-29 07:45 | disposition home or self-care (01) ==
LOC: HO.WFDLDS 07:44
PROVIDERS: Visit Provider Physician Assistant
DX: E11.9 Type 2 diabetes mellitus without complications (principal); I10 Essential (primary) hypertension
CPT/HCPCS: 36415; 80053; 82043; 82570; 83036

== ENCOUNTER 2024-10-31 09:21 | Outpatient (AMB) | payer MEDICARE, SELFPAY ==
--- NOTE | 2024-10-31 09:28 | A.OFFPC_ITS ---
Vital Signs 10/31/24 09:30 Height 5 ft 3.07 in Weight 163 lb 4 oz BMI 28.9 BP 136/72 Blood Pressure Location Rt brachial Position Sitting Respiration 14 Pulse 51 Pulse Source Pulse Oximeter Pulse Oximetry (%) 96 Oxygen Delivery Method Room Air Intake Visit Reasons: dm, bp Allergies metformin Allergy (Mild, Verified 08/01/24 08:30) Rash methimazole [From Tapazole] Allergy (Mild, Verified 08/01/24 08:30) Rash Medication List - Last Reconciled 10/31/24 by Brigid Cardenas PA-C empagliflozin (Jardiance) 25 mg PO DAILY levothyroxine 125 mcg PO DAILY lisinopril 5 mg PO DAILY semaglutide (Ozempic) 2 mg (0.75 mL) subcut QWEEK Tobacco use date assessed: 11/16/23 Dental Screening Dental Screen Date: 11/16/23 HPI dm, bp HPI Details Pt is a 74 y/o female with a significant past medical history of type 2 diabetes, hypertension, hypothyroidism who presents today to for a follow up. -request titers today on her immunizatio n status for her granddaughter who is having a baby soon. States that she will need a Tdap. Endo: DM- She was recently started on ozempic 2 mg and increased jardiance to 25 mg. No hypoglycemic events. Her A1c remain the same at 7. Metformin caused too much GI distress. The extended-release also caused hives. Glipizide caused hypoglycemia denies any frequent UTIs or yeast infections. No abdominal pain.. She goes annually for eyes, UTD. hypothyroid- was tsh was elevated in October and now normal. Increased dosage of the levothyroxine to 125 mcg. Tolerating well. CV: Bp today is 1 136/72. Her pulse today to 55. She says that this is normal for her. She is currently on lisinopril 5 mg. She does follow with cardiology was just seen recently for an appointment told to monitor her blood pressures closer. Denies any chest pain, dizziness, palpitations or shortness a breath. Last cholesterol was elevated. declines medications. She says that she does not like the idea of taking statins. She prefers to make some diet modifications but does not want to be on them. She is aware of her goal being less than 100. GI: States that last month she developed diarrhea that lasted for a few days. She wants to make sure that she is not have today. She states that she had diarrhea throughout 1 day with nausea but no vomiting. She states it almost felt like she had the stomach bug but no one around her got sick. No fever, chills or abdominal pain. Up-to-date on colonoscopy. No travel. No weight loss, blood in the stool or urine. No antibiotic use in over 2 years. Mammogram: States up-to-date from [facility] Bone density: 2 years ago-states that this is scheduled Colonoscopy: UTD 06/2023- due in 06/2028 [facility] Medical History (Updated 08/01/24 @ 09:06 by Brigid Cardenas PA-C) Dyslipidemia Hypothyroidism (acquired) Hypertension Poorly controlled type 2 diabetes mellitus Family History (Updated 11/16/23 @ 10:53 by Carmen Broderick CMA) Other Substance abuse Social History (Updated 11/16/23 @ 10:53 by Carmen Broderick CMA) Housing: House Patient Tobacco Use Status: Never used Tobacco e-Cigarette/Vaping Use: Never Used service: No Current occupational status: retired Cognitive needs: No Hearing needs: Yes (hearing aid, hard time hearing ) Vision needs: No Questionnaire Thrive Questionnaire Date Thrive assessed: 08/01/24 AUDIT C Alcohol Use Questionnaire (AUDIT-C) 1. How often do you have a drink containing alcohol?: Monthly or less 2. How many drinks containing alcohol do you have on a typical day when you are drinking?: 1 or 2 3. How often do you have six or more drinks on one occasion?: Never Total Score: 1 LANG-7 AMB Questionnaire LANG-7 Date LANG - 7 assessed: 11/16/23 Source: Developed by Drs. Mike Allison, Kayla Landa, Nikhil Zafar and colleagues, with an educational jyothi from [employer]. Physical exam (Primary Care) Vital Signs: Last Vital Signs Pulse 51 10/31/24 09:30 Resp 14 10/31/24 09:30 BP 136/72 10/31/24 09:30 Pulse Ox 96 10/31/24 09:30 Oxygen Delivery Method Room Air 10/31/24 09:30 BMI result Body Mass Index 28.9 Tobacco/Smoking Status: Tobacco use Status Tobacco use date assessed 11/16/23 10/31/24 09:32 Patient Tobacco Use Status Never used Tobacco 10/31/24 09:32 e-Cigarette/Vaping Use Never Used 10/31/24 09:32 Thrive Assessment: Date of Thrive Assessment Date Thrive assessed 08/01/24 10/31/24 09:32 Const Orientation/consciousness: patient oriented x3 HENMT Ears: hearing grossly normal bilaterally Neck Thyroid: Thyroid normal Lymphatic: no lymphadenopathy noted Resp Auscultation: clear to auscultation bilaterally Cardio Rate: regular rate Rhythm: regular rhythm Heart sounds: S1 normal heart sound present and S2 normal heart sound present GI Inspection: Yes normal to inspection Palpation (GI): Soft to palpation and Other GI palpation findings present (nontender, no cva tenderness) Auscultation: normoactive bowel sounds Rectal Exam - Female: deferred Skin General skin exam: no rashes or lesions noted Neuro General: patient oriented x3, gait normal and no focal motor deficits Coding Level of Care Code Est Pt Level 4 (93016) Complex EM visit Add On G2211 Diagnoses Primary hypertension I10 Hypertension type: primary hypertension Hypothyroidism (acquired) E03.9 Dyslipidemia E78.5 Well controlled type 2 diabetes mellitus E11.9 Diarrhea R19.7 Assessment & Plan Assessment & Plan (1) Hypertension: Code(s): I10 - Essential (primary) hypertension Category: Medical Qualifiers: Hypertension type: primary hypertension Qualified Code(s): I10 - Essential (primary) hypertension Plan: WNL. Continue current regimen (2) Hypothyroidism (acquired): Code(s): E03.9 - Hypothyroidism, unspecified Category: Medical Plan: We will monitor (3) Dyslipidemia: Code(s): E78.5 - Hyperlipidemia, unspecified Category: Medical Plan: We will continue to monitor diet (4) Well controlled type 2 diabetes mellitus: Code(s): E11.9 - Type 2 diabetes mellitus without complications Category: Medical Plan: Controlled (5) Diarrhea: Code(s): R19.7 - Diarrhea, unspecified Plan: Resolved. Advised to contact me if symptoms reoccur. Labs ordered. Orders: Orders Complete Blood Count Auto Diff Today E03.9 - Hypothyroidism, unspecified, E11.9 - Type 2 diabetes mellitus without complications, E78.5 - Hyperlipidemia, unspecified, I10 - Essential (primary) hypertension, R19.7 - Diarrhea, unspecified OBSX3 Today E03.9 - Hypothyroidism, unspecified, E11.9 - Type 2 diabetes mellitus without complications, E78.5 - Hyperlipidemia, unspecified, I10 - Essential (primary) hypertension, R19.7 - Diarrhea, unspecified C Reactive Protein Today E03.9 - Hypothyroidism, unspecified, E11.9 - Type 2 diabetes mellitus without complications, E78.5 - Hyperlipidemia, unspecified, I10 - Essential (primary) hypertension, R19.7 - Diarrhea, unspecified UA CC w/rflx Micro + Cult Today E03.9 - Hypothyroidism, unspecified, E11.9 - Type 2 diabetes mellitus without complications, I10 - Essential (primary) hypertension, Z13.220 - Encounter for screening for lipoid disorders TSH reflex Free T4 Today E03.9 - Hypothyroidism, unspecified, E11.9 - Type 2 diabetes mellitus without complications, E78.5 - Hyperlipidemia, unspecified, I10 - Essential (primary) hypertension, R19.7 - Diarrhea, unspecified MMR IgG Measles Mumps Rubella Today Z28.39 - Other underimmunization status Varicella IgG Antibody Today Z28.39 - Other underimmunization status Hepatitis BE Antibody Today Z28.39 - Other underimmunization status
[2024-10-31 09:30] VITALS: BP 136/72; PULSE 51; RESP 14; O2SAT 96; BMI 28.9
== END 2024-10-31 10:19 | disposition home or self-care (01) ==
LOC: HO.HMCFM 09:22
PROVIDERS: PCP Physician Assistant; Visit Provider Physician Assistant
DX: I10 Essential (primary) hypertension (principal); E03.9 Hypothyroidism, unspecified; E78.5 Hyperlipidemia, unspecified; E11.9 Type 2 diabetes mellitus without complications; R19.7 Diarrhea, unspecified

== ENCOUNTER → 2024-10-31 09:21 | Outpatient (BNVA) | payer MEDICARE, SELFPAY | PROVIDERS: PCP Physician Assistant; Visit Provider Physician Assistant | DX: Z13.89 Encounter for screening for other disorder (principal) | CPT/HCPCS: 99212 ==

== ENCOUNTER 2024-10-31 10:29 | Outpatient (REF) | payer MEDICARE, SELFPAY ==
[2024-10-31 14:19] LABS: MANUAL DIFF FLAG NO
[2024-10-31 14:23] LABS: Basophils Percent Auto 0.6 % (0-2); Eosinophils Absolute Auto 0.1 X10*3/uL (0.0-0.4); Eosinophils Percent Auto 1.7 % (0-4); Hemoglobin 13.4 g/dl (12.0-16.0); Imm Gran Abs Auto 0.03 X10*3/uL (0.00-0.03); Imm Gran Pct Auto 0.4 % (0.0-0.4); Lymphocytes Absolute Auto 2.6 X10*3/uL (1.2-4.9); Lymphocytes Percent Auto 35.5 % (20-40); Mean Corpuscular HGB Conc 32.7 g/dl (31.0-35.0); Mean Corpuscular Volume 91.9 fL (80.0-98.0); Monocytes Absolute Auto 0.6 X10*3/uL (0.1-1.2); Monocytes Percent Auto 7.9 % (2-11); Neutrophils Absolute Auto 3.9 x10*3/uL (2.0-8.3); Neutrophils Percent Auto 53.9 % (45-73); Platelet Count 254 X10*3/uL (160-400); Red Blood Count 4.46 X10*6/uL (4.20-5.50); Red Cell Distribution Width 13.3 % (11.0-16.0); White Blood Count 7.2 X10*3/uL (4.8-10.8)
[2024-10-31 14:35] LABS: Appearance Urine Cloudy; Color Urine Yellow; Glucose Urine UA >=1000 mg/dL (Negative); Leukocyte Esterase Urine Large (3+) (Negative); Nitrite Urine Negative (Negative); PH 5.5 (5.0-9.0); UMIC TRIGGER UACC YES; Urine Blood Trace (Negative); Urine Ketones Negative (Negative); Urine Protein Negative (Neg-Trace)
[2024-10-31 14:41] LABS: Bacteria Urine 4+ (None Seen); Hyaline Casts Urine 0-2 /LPF (0-2); RBC Urine 0-2 /HPF (0-2); UACC Culture Trigger YES; WBC Urine >50 /HPF (0-5)
[2024-10-31 14:43] LABS: C Reactive Protein 0.34 mg/dL (< or = 0.50)
[2024-10-31 14:52] LABS: TSH reflex Free T4 0.74 uIU/mL (0.32-4.0)
[2024-11-01 14:53] LABS: Mumps Virus IgG Antibody <9.00 AU/mL; Rubella IgG Antibody 8.01 Index; Rubeola IgG (Measles) >300.00 AU/mL
[2024-11-02 22:23] LABS: Hepatitis BE Antibody NON-REACTIVE (NON-REACTIVE)
== END 2024-10-31 10:30 | disposition home or self-care (01) ==
LOC: HO.WFDLDS 10:29
PROVIDERS: Visit Provider Physician Assistant
DX: R19.7 Diarrhea, unspecified (principal); E11.9 Type 2 diabetes mellitus without complications; E78.5 Hyperlipidemia, unspecified; E03.9 Hypothyroidism, unspecified; I10 Essential (primary) hypertension; Z28.39 Other underimmunization status; Z13.9 Encounter for screening, unspecified
CPT/HCPCS: 36415; 81001; 84443; 85025; 86140; 86707; 86735; 86762; 86765; 86787; 87086; 99212

== ENCOUNTER 2025-02-01 08:01 | Outpatient (REF) | payer MEDICARE, SELFPAY ==
--- OUTSIDE RECORDS SUMMARY | 2025-02-01 08:06 | XMS_ITS ---
Author Name [facility] Organization Unknown Care Team Organization Name Specialty Phone Email Start Date End Da te [facility] Dixie Zarate Primary [facility] 12/03/2022 02/13/2024 [facility] Cassie, JARRELL Primary Care 09/28/202201/25 [facility] Iveth Morrison Primary Care 05/04/202201/25
[2025-02-01 14:46] LABS: Appearance Urine Clear; Glucose Urine UA >=1000 mg/dL (Negative); PH 6.5 (5.0-9.0); Specific Gravity - Urine 1.015 (1.005-1.025); UMIC TRIGGER UACC YES
== END 2025-02-01 08:02 | disposition home or self-care (01) ==
LOC: HO.WFDLDS 08:01
PROVIDERS: Visit Provider Physician Assistant
DX: R31.9 Hematuria, unspecified (principal); I10 Essential (primary) hypertension; E03.9 Hypothyroidism, unspecified; E11.9 Type 2 diabetes mellitus without complications
CPT/HCPCS: 81001

== ENCOUNTER 2025-02-07 08:40 | Outpatient (REF) | payer MEDICARE, SELFPAY | END 2025-02-07 08:41 | disposition home or self-care (01) | LOC: HO.LAB 08:40 | PROVIDERS: PCP Physician Assistant; Visit Provider Physician Assistant | DX: N81.10 Cystocele, unspecified (principal); I10 Essential (primary) hypertension; E11.9 Type 2 diabetes mellitus without complications; E78.5 Hyperlipidemia, unspecified | CPT/HCPCS: 83036; 96127; 99212 ==

== ENCOUNTER 2025-02-07 08:40 | Outpatient (AMB) | payer MEDICARE, SELFPAY ==
--- NOTE | 2025-02-07 08:53 | A.OFFPC_ITS ---
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 Required: No Is last menstrual period known: No Post menopausal: No Patient : No Allergies metformin Allergy (Mild, Verified 02/07/25 08:55) Rash methimazole (From Tapazole) Allergy (Mild, Verified 02/07/25 08:55) Rash Medication List - Last Reconciled 02/07/25 by Brigid Cardenas PA-C empagliflozin (Jardiance) 25 mg PO DAILY levothyroxine 125 mcg PO DAILY lisinopril 5 mg PO DAILY semaglutide (Ozempic) 2 mg (0.75 mL) subcut QWEEK Tobacco use date assessed: 02/07/25 Fall risk assessment: No Falls in past year Last assessed Fall Risk: 02/07/25 Dental Screening Dental Screen Date: 02/07/25 Did you have a dental visit in the last 12 months?: Yes Did you have a dental problem in the last 6 months where you did not have access to dental care?: No Was dental information given to patient?: Patient has dentist HPI dm HPI Details Pt is a 74 y/o female with a significant past medical history of type 2 diabetes, hypertension, hypothyroidism who presents today to for a follow up. Endo: DM- She was recently started on ozempic 2 mg and increased jardiance to 25 mg. No hypoglycemic events. Her A1c remain the same at 7. Metformin caused too much GI distress. The extended-release also caused hives. Glipizide caused hypoglycemia denies any frequent UTIs or yeast infections. No abdominal pain.. She goes annually for eyes, UTD. hypothyroid- was tsh was wnl. On levothyroxine to 125 mcg. Tolerating well. CV: Bp today is 151/68. She is currently on lisinopril 5 mg. She states at home her blood pressures are normal but she has not checked it recently. Coming into the doctor's office makes her feel a little nervous. She says that she will go home and check it. She does follow up with Cardiology. Denies any chest pain, dizziness, palpitations or shortness a breath. Last cholesterol was elevated. declines medications. She says that she does not like the idea of taking statins. She prefers to make some diet modifications but does not want to be on them. She is aware of her goal being less than 100. GI: diarrhea from last office visit resolved. stool card had blood x 3. She is booked with GI in March. Urogynecology: Has a history of bladder prolapse and states that she would like to see a urogynecologist as she can feel it prolapsing it she has a constantly push it back in. Mammogram: States up-to-date from [facility] do not have records Bone density: Had it done early summer but no records. Colonoscopy: UTD 06/2023- due in 06/2028 [facility] Medical History (Updated 02/07/25 @ 09:10 by Brigid Cardenas PA-C) Dyslipidemia Hypothyroidism (acquired) Hypertension Poorly controlled type 2 diabetes mellitus Family History (Updated 11/16/23 @ 10:53 by Carmen Broderick CMA) Other Substance abuse Social History (Updated 11/16/23 @ 10:53 by Carmen Broderick CMA) Housing: House Patient Tobacco Use Status: Never used Tobacco e-Cigarette/Vaping Use: Never Used service: No Current occupational status: retired Cognitive needs: No Hearing needs: Yes (hearing aid, hard time hearing ) Vision needs: No Questionnaire PHQ-9 Over the last 2 weeks, how often have you been bothered by any of the following problems? 1. Little interest or pleasure in doing things: not at all 2. Feeling down, depressed, or hopeless: not at all 3. Trouble falling or staying asleep, or sleeping too much: not at all 4. Feeling tired or having little energy: not at all 5. Poor appetite or overeating: not at all 6. Feeling bad about yourself - or that you are a failure or have let yourself or your family down: not at all 7. Trouble concentrating on things, such as reading the newspaper or watching television: not at all 8. Moving or speaking so slowly that other people could have noticed. Or the opposite - being so fidgety or restless that you have been moving around a lot more than usual: not at all 9. Thoughts that you would be better off or of hurting yourself in some way: not at all Total score: 0 Depression Screening Interpretation: Negative Depression Screening Done: Yes 47060 - PHQ-9 Billing: Yes Source: Developed by Drs. Mike Allison, Kayla Landa, Nikhil Zafar and colleagues, with an educational jyothi from [employer]. Thrive Questionnaire Date Thrive assessed: 02/07/25 I am a: Patient What is your living situation today?: I have a steady place to live Within the past 12 months, did the food you bought not last and you didn't have the money to get more?: Never true Within the past 12 months, did you worry whether your food would run out before you got money to buy more?: Never true Do you have trouble paying for medicines?: No Do you have trouble getting transportation to medical appointments?: No Do you have trouble paying your heating and electricity bill?: No Do you have trouble taking care of your child, family member or friend?: No THRIVE Score: 0 LANG-7 AMB Questionnaire LANG-7 Date LANG - 7 assessed: 11/16/23 Feeling nervous, anxious, or on edge: 0 = Not at all Not being able to stop or control worryin = Not at all Worrying too much about different things: 0 = Not at all Trouble relaxin = Not at all Being so restless that it is hard to sit still: 0 = Not at all Becoming easily annoyed or irritable: 0 = Not at all Feeling afraid as if something awful might happen: 0 = Not at all Total LANG-7 score (0-4 normal; 5-9 mild; 10-14 moderate; 15-21 severe): 0 Source: Developed by Drs. Mike Allison, Kayla Landa, Nikhil Zafar and colleagues, with an educational jyothi from [employer]. LANG-7 Assessment Billing LANG-7 Assessment Tool: LANG-7 Assessment 78570 Physical exam (Primary Care) Vital Signs: Last Vital Signs Temp 98.2 F 02/07/25 08:56 Pulse 58 02/07/25 08:56 Resp 16 02/07/25 08:56 BP 151/68 H 02/07/25 08:56 Pulse Ox 96 02/07/25 08:56 Oxygen Delivery Method Room Air 02/07/25 08:56 BMI result Body Mass Index 27.5 Tobacco/Smoking Status: Tobacco use Status Tobacco use date assessed 02/07/25 02/07/25 08:59 Patient Tobacco Use Status Never used Tobacco 02/07/25 08:59 e-Cigarette/Vaping Use Never Used 02/07/25 08:59 Depression Screening Interpretation: Negative Thrive Assessment: Date of Thrive Assessment Date Thrive assessed 02/07/25 02/07/25 08:59 Const Orientation/consciousness: patient oriented x3 HENMT Ears: hearing grossly normal bilaterally Neck Thyroid: Thyroid normal Lymphatic: no lymphadenopathy noted Resp Auscultation: clear to auscultation bilaterally Cardio Rate: regular rate Rhythm: regular rhythm Heart sounds: S1 normal heart sound present and S2 normal heart sound present GI Inspection: Yes normal to inspection Palpation (GI): Soft to palpation and Other GI palpation findings present (nontender, no cva tenderness) Auscultation: normoactive bowel sounds Rectal Exam - Female: deferred Skin General skin exam: no rashes or lesions noted Neuro General: patient oriented x3, gait normal and no focal motor deficits Results AMB Hemoglobin A1c AMB Hemoglobin A1c 7.0 % Last Edit by Jennie Eng MA on 02/07/25 09:24 Results Reviewed Results Reviewed: Laboratory Last Values Hgb A1c (Clinic) 7.0 % (4.0-6.0) H 02/07/25 09:21 Laboratory Tests 07/30/24 10/29/24 10/29/24 09:34 07:45 07:51 WBC RBC Hgb Hct Plt Count Sodium 139 Potassium 4.3 Chloride 107 Carbon Dioxide 25 Anion Gap 11 L BUN 14 Creatinine 0.73 Estimated GFR > 60 Fasting Glucose 135 H Estimat Average Glucose 154 Hemoglobin A1c % 7.0 H Calcium 8.9 D Total Bilirubin 0.4 AST 17 ALT 10 Alkaline Phosphatase 72 Total Protein 6.7 Albumin 3.8 Triglycerides 126 Cholesterol 218 H LDL Cholesterol, Calc 129 H HDL Cholesterol 64 TSH Urine Creatinine 65.13 Urine Microalbumin 42.0 Microalb/Creat Ratio 64.4 H 10/31/24 10:31 WBC 7.2 RBC 4.46 Hgb 13.4 Hct 41.0 Plt Count 254 Sodium Potassium Chloride Carbon Dioxide Anion Gap BUN Creatinine Estimated GFR Fasting Glucose Estimat Average Glucose Hemoglobin A1c % Calcium Total Bilirubin AST ALT Alkaline Phosphatase Total Protein Albumin Triglycerides Cholesterol LDL Cholesterol, Calc HDL Cholesterol TSH 0.74 Urine Creatinine Urine Microalbumin Microalb/Creat Ratio Coding Level of Care Code Est Pt Level 4 (54042) Complex EM visit Add On G2211 Diagnoses Female bladder prolapse N81.10 Primary hypertension I10 Hypertension type: primary hypertension Dyslipidemia E78.5 Well controlled type 2 diabetes mellitus E11.9 Additional Codes PHQ-9 - 90318 - PHQ-9 Billing: Yes ([id number]) LANG-7 Assessment Billing - LANG-7 Assessment Tool: LANG-7 Assessment 69735 ([id number]) Assessment & Plan Assessment & Plan (1) Female bladder prolapse: Code(s): N81.10 - Cystocele, unspecified Category: Medical Plan: Referral to Urogynecology (2) Hypertension: Code(s): I10 - Essential (primary) hypertension Category: Medical Qualifiers: Hypertension type: primary hypertension Qualified Code(s): I10 - Essential (primary) hypertension Plan: Elevated above goal today but normally normal. She is going to let me know how they look at home. If elevated we will increase the lisinopril. (3) Dyslipidemia: Code(s): E78.5 - Hyperlipidemia, unspecified Category: Medical Plan: Diet controlled. We will monitor (4) Well controlled type 2 diabetes mellitus: Code(s): E11.9 - Type 2 diabetes mellitus without complications Category: Medical Plan: Continue current regimen. Well-controlled. We will recheck labs in 3 months. Plan Referral to dermatology for a skin check. Orders: Orders Comprehensive [place]. Panel Fast Today E11.9 - Type 2 diabetes mellitus without complications, E78.5 - Hyperlipidemia, unspecified, I10 - Essential (primary) hypertension Hemoglobin A1c Today E11.9 - Type 2 diabetes mellitus without complications, E78.5 - Hyperlipidemia, unspecified, I10 - Essential (primary) hypertension, R73.01 - Impaired fasting glucose Microalbumin, Random (w Creat) Today E11.9 - Type 2 diabetes mellitus without complications, E78.5 - Hyperlipidemia, unspecified, I10 - Essential (primary) hypertension AMB Hemoglobin A1c Today E11.9 - Type 2 diabetes mellitus without complications Complete Blood Count Auto Diff Today E11.9 - Type 2 diabetes mellitus without complications, E78.5 - Hyperlipidemia, unspecified, I10 - Essential (primary) hypertension TSH reflex Free T4 Today E11.9 - Type 2 diabetes mellitus without complications, E78.5 - Hyperlipidemia, unspecified, I10 - Essential (primary) hypertension UA CC w/rflx Micro + Cult Today E11.9 - Type 2 diabetes mellitus without complications, E78.5 - Hyperlipidemia, unspecified, I10 - Essential (primary) hypertension, Z13.220 - Encounter for screening for lipoid disorders Referrals Urogynecology Referral N81.10 - Cystocele, unspecified Dermatology Referral L98.9 - Disorder of the skin and subcutaneous tissue, unspecified
[2025-02-07 08:56] VITALS: BP 151/68; PULSE 58; RESP 16; TEMP 36.8; O2SAT 96; BMI 27.5
== END 2025-02-07 09:27 | disposition home or self-care (01) ==
LOC: HO.HMCFM 08:47
PROVIDERS: PCP Physician Assistant; Visit Provider Physician Assistant
DX: N81.10 Cystocele, unspecified (principal); I10 Essential (primary) hypertension; E78.5 Hyperlipidemia, unspecified; E11.9 Type 2 diabetes mellitus without complications

== ENCOUNTER 2025-04-02 09:32 | Outpatient (AMB) | payer MEDICARE, SELFPAY ==
--- NOTE | 2025-04-02 09:35 | MHC.OFFVIS ---
Vital Signs 04/02/25 09:38 Height 5 ft 3.7 in Weight 157 lb BMI 27.2 Blood Pressure Location Lt brachial Position Sitting Intake Visit Reasons: K92.1 - Melena Intake Note: Patient new consult for Melena Patient cc: acid reflux, she have swallowing difficulties with solid food/feeling on getting stock on her esophagus. Patient provider saw blood on her stool also patient was with diarrhea and burping with a bad smell. Provider Contracting Consultant Required: No Accompanied by: Self / Same As Patient Allergies metformin Allergy (Mild, Verified 04/02/25 09:34) Rash methimazole (From Tapazole) Allergy (Mild, Verified 04/02/25 09:34) Rash Medication List - Last Reconciled 04/02/25 by Lillie Hebert CNP empagliflozin (Jardiance) 25 mg PO DAILY levothyroxine 125 mcg PO DAILY lisinopril 5 mg PO BID semaglutide (Ozempic) 2 mg (0.75 mL) subcut QWEEK HPI HPI K92.1 - Melena: Details: Patient is a 74-year-old female with PMH of diabetes, hypertension, hyperlipidemia and hypothyroidism. Referred by PCP for further evaluation of diarrhea and blood in stools. She reports diarrhea began in September with acute onset during the night, associated with stomach discomfort and visible abdominal movement. Symptoms included episodic diarrhea for four hours?no significant pain, some left-sided cramping at onset, marked sulfur-tasting burping, and nausea without emesis. Pt denied constipation or bloating thereafter, but experienced four days without BM before return of soft stool, then normalization. A week later, had additional self-limited diarrhea; since resolved without recurrence. Regular bowel pattern is 1/day, requiring herbal Intestinal Cleanse ; without it, pt becomes constipated and must strain. No blood visualized in stool, but FOBT (ordered in October by PCP) positive per report. Reports colonoscopy Jun 2023 at [facility] revealed diverticulosis, hemorrhoids (currently causes nocturnal itching), and polypectomy (type unspecified). No distinct hx of diverticulitis or ABX. Heartburn occurs approx once weekly, triggered by late-night eating; managed with baking soda and water. Mild, episodic dysphagia to solids (twice mo), attributed by pt to rapid eating. Denies overt regurgitation. Relevant PMH includes HTN, hypothyroidism, and DM2; managed with multiple agent. Family hx notable for maternal and maternal uncle colon cancer. Cardiology (Chris Aguila, [facility] provider) follows pt for HTN; echo planned. Patient denies: fever/chills, vomiting, appetite changes, regurgitation, unintentional wt loss. Social hx: -denies ETOH use -denies recreational drug use -non-smoker - family hx as below -denies personal hx of CA -tolerated anesthesia in the past without difficulty. [facility] Medical History (Updated 04/02/25 @ 11:19 by Lillie Hebert CNP) Constipation Diarrhea Acid reflux Dysphagia Dyslipidemia Hypothyroidism (acquired) Hypertension Poorly controlled type 2 diabetes mellitus Family History (Updated 04/02/25 @ 10:04 by Lillie Hebert CNP) Mother Colon cancer Paternal Uncle Colon cancer Other Substance abuse Social History Housing: House Patient Tobacco Use Status: Never used Tobacco e-Cigarette/Vaping Use: Never Used service: No Current occupational status: retired Cognitive needs: No Hearing needs: Yes (hearing aid, hard time hearing ) Vision needs: No Review of Systems Const Reports as per HPI ENT Reports as per HPI Card Reports as per HPI Resp Reports as per HPI GI Reports as per HPI Reports as per HPI Physical Exam Vital Signs: BMI result Body Mass Index 27.2 Const General: healthy appearing, no acute distress and well developed Nutritional Appearance: average body habitus Orientation/consciousness: patient oriented x3 HEENT Head: Yes normal to inspection, Yes normocephalic and Yes atraumatic Face and sinus: Yes normal facial exam Eyes General: appearance normal, both eyes and all related structures Neck Neck: Yes normal visual inspection Resp Effort & Inspection: normal respiratory effort, able to speak in complete sentences, no tracheal deviation and symmetric chest movement Auscultation: clear to auscultation bilaterally Cardio Jugular venous distension: no JVD Rate: regular rate Rhythm: regular rhythm Heart sounds: S1 normal heart sound present, S2 normal heart sound present, no gallops and no murmurs GI Inspection: Yes normal to inspection, No distended and Yes obesity Palpation (GI): Soft to palpation, not firm, nontender and No hepatosplenomegaly present Auscultation: normal bowel sounds Neuro General: patient oriented x3 Gait exam (Neuro): Normal gait present Psych Appearance: grossly normal Mental Status: mental status grossly normal Speech and movement: Normal speech and movement present Affect: normal affect Attitude: cooperative Thought process: Normal thought process present Thought content: Normal thought content present Insight: Good insight present (Psych) Judgement: Good judgement present (Psych) Assessment & Plan Assessment & Plan (1) Diarrhea: Code(s): R19.7 - Diarrhea, unspecified Category: Medical Qualifiers: Diarrhea type: unspecified type Qualified Code(s): R19.7 - Diarrhea, unspecified Plan: Acute, self-limited diarrhea w/positive occult stool blood (labs not available); no visible bleeding, but family h/o colon CA; prior polyps; concurrent hemorrhoids. Additional Testing: Facilitate transfer/receipt of full colonoscopy/pathology records per pt preference. GI referral to [facility] for review, consider repeat colonoscopy given red flags (FOBT+, new GI sx, FHx, prior polyps). Medication Management: Continue current regimen. Lifestyle Recommendations: Maintain hydration during diarrheal episodes; monitor for recurrence, visible blood; maintain bowel regimen to prevent constipation. Follow-Up: Await GI evaluation/consult at [facility] ([place]); urgent referral placed. Return to clinic prn symptoms worsen or significant delay in transfer. (2) Acid reflux: Code(s): K21.9 - Gastro-esophageal reflux disease without esophagitis Category: Medical Qualifiers: Esophagitis presence: esophagitis presence not specified Qualified Code(s): K21.9 - Gastro-esophageal reflux disease without esophagitis Plan: Mild, food/timing-related heartburn, rare dysphagia to solids; no weight loss, regurgitation. Negative for alarm features except family CA. Additional Testing: Recommend upper GI series w/barium swallow to evaluate for mucosal or motility disorder. No EGD performed per pt. Option for study at [facility] after transfer. Medication Management: Continue as is; baking soda/water prn; no regular acid suppression at present. Offered famotidine/Pepcid prn?pt declines. Lifestyle Recommendations: Avoid late-night/trigger foods (spicy, acidic, fatty, carbonated), elevate HOB, eat slowly, remain upright after meals, small/frequent meals. Follow-Up: Per GI; return if progressive symptoms, weight loss, overt dysphagia, or new symptoms. (3) Constipation: Code(s): K59.00 - Constipation, unspecified Category: Medical Qualifiers: Constipation type: unspecified constipation type Qualified Code(s): K59.00 - Constipation, unspecified Plan: Constipation in absence of herbal supplement; risk for hemorrhoidal irritation and diverticular complications. Additional Testing: None at this time. Medication Management: Continue herbal supplement if effective/safe. Discuss and consider alternatives (fiber, osmotic agents) if preferred. Lifestyle Recommendations: High-fiber diet, adequate hydration, physical activity as tolerated. Follow-Up: Monitor for changes in pattern, new pain, bleeding. Plan Follow-up as needed Time: I spent a total of 33 minutes on the date of encounter which includes: Preparing to see the patient (reviewed previous documentation, test results and medical history) Performing a medically appropriate exam and/or evaluation Ordering medications, tests, and procedures Documenting clinical information in the health record Orders: Referrals Gastroenterology Referral K21.9 - Gastro-esophageal reflux disease without esophagitis, K92.1 - Melena, R13.10 - Dysphagia, unspecified Coding Level of Care Code New Pt New Pt Level 3 (97357) Patient Type New Diagnoses Diarrhea, unspecified type R19.7 Diarrhea type: unspecified type Gastroesophageal reflux disease, unspecified whether esophagitis present K21.9 Esophagitis presence: esophagitis presence not specified Constipation, unspecified constipation type K59.00 Constipation type: unspecified constipation type
[2025-04-02 09:38] VITALS: BMI 27.2
== END 2025-04-02 10:16 | disposition home or self-care (01) ==
LOC: HO.HGI 09:33
PROVIDERS: PCP Physician Assistant; Visit Provider Nurse Practitioner Family
DX: R19.7 Diarrhea, unspecified (principal); K21.9 Gastro-esophageal reflux disease without esophagitis; K59.00 Constipation, unspecified
CPT/HCPCS: 99203

== ENCOUNTER → 2025-04-02 09:32 | Outpatient (BNVA) | payer MEDICARE, SELFPAY | PROVIDERS: PCP Physician Assistant; Visit Provider Nurse Practitioner Family | DX: K92.1 Melena (principal); R19.7 Diarrhea, unspecified; K21.9 Gastro-esophageal reflux disease without esophagitis; K59.00 Constipation, unspecified | CPT/HCPCS: 99202 ==

== ENCOUNTER 2025-05-13 08:17 | Outpatient (REF) | payer MEDICARE, SELFPAY ==
[2025-05-13 11:21] LABS: MANUAL DIFF FLAG NO
[2025-05-13 11:42] LABS: Appearance Urine Clear; Glucose Urine UA >=1000 mg/dL (Negative); PH 7.0 (5.0-9.0); Specific Gravity - Urine 1.020 (1.005-1.025); UMIC TRIGGER UACC YES
[2025-05-13 12:12] LABS: Hematocrit 39.7 % (37.0-47.0); Hemoglobin 12.9 g/dl (12.0-16.0); Imm Gran Abs Auto 0.07 X10*3/uL (0.00-0.03); Imm Gran Pct Auto 1.2 % (0.0-0.4); Lymphocytes Absolute Auto 2.0 X10*3/uL (1.2-4.9); Mean Corpuscular HGB Conc 32.5 g/dl (31.0-35.0); Mean Corpuscular Hemoglobin 29.2 pg (27.0-33.0); Mean Corpuscular Volume 89.8 fL (80.0-98.0); NRBC Abs Auto 0.000 X10*3/uL (0.0-0.012); NRBC Pct Auto 0.0 /100WBC (0.0-0.2); Platelet Count 228 X10*3/uL (160-400); Red Blood Count 4.42 X10*6/uL (4.20-5.50); White Blood Count 6.1 X10*3/uL (4.8-10.8)
[2025-05-13 12:29] LABS: UACC Culture Trigger YES
[2025-05-13 12:42] LABS: Alanine Aminotransferase 11 U/L (0-31); Albumin Level 4.0 g/dL (3.5-5.0); Alkaline Phosphatase 73 U/L (39-117); Anion Gap 14 (12-20); Aspartate Amino Transferase 19 U/L (5-31); Blood Urea Nitrogen 17 mg/dL (9-16); Calcium 9.0 mg/dL (8.4-10.2); Carbon Dioxide 25 mmol/L (22-29); Chloride 106 mmol/L (96-108); Estimated Glomerular Filt Rate > 60; Potassium 4.6 mmol/L (3.3-5.1); Sodium 140 mmol/L (135-145); Total Protein 6.9 g/dL (6.5-8.0)
== END 2025-05-13 08:18 | disposition home or self-care (01) ==
LOC: HO.WFDLDS 08:17
PROVIDERS: Visit Provider Physician Assistant
DX: E11.69 Type 2 diabetes mellitus with other specified complication (principal); E78.5 Hyperlipidemia, unspecified; I10 Essential (primary) hypertension
CPT/HCPCS: 36415; 80053; 81001; 82043; 82570; 83036; 84443; 85025; 87086

== ENCOUNTER 2025-05-15 09:30 | Outpatient (AMB) | payer MEDICARE, SELFPAY ==
--- NOTE | 2025-05-15 09:37 | MHC.PC.OV ---
Vital Signs 05/15/25 09:38 05/15/25 09:51 Height 5 ft 3.7 in Weight 159 lb 2 oz BMI 27.6 BP 146/76 H 142/72 H Blood Pressure Location Rt brachial Rt brachial Position Sitting Sitting Respiration 14 Pulse 54 Pulse Source Pulse Oximeter Temp 97.9 F Temp Source Oral Pulse Oximetry (%) 97 Oxygen Delivery Method Room Air Intake Visit Reasons: dm and labs Intake Note: Follow up Certified First Assistant Required: No Allergies metformin Allergy (Mild, Verified 05/15/25 09:39) Rash methimazole (From Tapazole) Allergy (Mild, Verified 05/15/25 09:39) Rash Medication List - Last Reconciled 05/15/25 by Brigid Cardenas PA-C empagliflozin (Jardiance) 25 mg PO DAILY levothyroxine 125 mcg PO DAILY lisinopril 5 mg PO BID semaglutide (Ozempic) 2 mg (0.75 mL) subcut QWEEK Tobacco use date assessed: 05/15/25 Fall risk assessment: No Falls in past year Last assessed Fall Risk: 05/15/25 Dental Screening Dental Screen Date: 02/07/25 HPI dm and labs HPI Details Pt is a 75 y/o female with a significant past medical history of type 2 diabetes, hypertension, hypothyroidism who presents today to for a follow up. Endo: DM- She was recently started on ozempic 2 mg and increased jardiance to 25 mg. No hypoglycemic events. Her A1c from 2 days ago was 7.1 but today in the office is 7.5. It was taken by accident. She says when she checks her blood sugars it is usually about 130. Metformin caused too much GI distress. The extended-release also caused hives. Glipizide caused hypoglycemia denies any frequent UTIs or yeast infections. No abdominal pain.. She goes annually for eyes, UTD. hypothyroid- was tsh was wnl. On levothyroxine to 125 mcg. Tolerating well. CV: Bp today is 142/72. She is currently on lisinopril 5 mg twice a day. She does follow up with Cardiology who recommended potentially increasing the dosage if blood pressures remain elevated. Denies any chest pain, dizziness, palpitations or shortness a breath. Last cholesterol was elevated. declines medications. She says that she does not like the idea of taking statins. She prefers to make some diet modifications but does not want to be on them. She is aware of her goal being less than 100. GI: She has not heard from [facility] but did [place] [facility] [place] for possible [place]oscopy and to be seen urgently. Urogynecology: Has a history of bladder prolapse and states that she would like to see a urogynecologist as she can feel it prolapsing it she has a constantly push it back in. mar 26 she had a bladder stimulator inserted. She has had some intermittent hematuria with this. She has not contacted Urology yet. Mammogram: States up-to-date from [facility] do not have records Bone density: Had it done early summer but no records. Colonoscopy: UTD 06/2023- due in 06/2028 REPLACED BY [facility] Medical History (Updated 04/02/25 @ 11:19 by Lillie Hebert CNP) Constipation Diarrhea Acid reflux Dysphagia Dyslipidemia Hypothyroidism (acquired) Hypertension Poorly controlled type 2 diabetes mellitus Family History Mother Colon cancer Paternal Uncle Colon cancer Other Substance abuse Social History (Updated 05/15/25 @ 10:47 by Carmen Broderick CMA) Housing: House Alcohol intake: never Patient Tobacco Use Status: Never used Tobacco e-Cigarette/Vaping Use: Never Used Use of substances other than those prescribed or required for medical reasons: No service: No Current occupational status: retired Cognitive needs: No Hearing needs: Yes (hearing aid, hard time hearing ) Vision needs: No Questionnaire Thrive Questionnaire Date Thrive assessed: 02/07/25 I am a: Patient What is your living situation today?: I have a steady place to live Within the past 12 months, did the food you bought not last and you didn't have the money to get more?: Never true Within the past 12 months, did you worry whether your food would run out before you got money to buy more?: Never true Do you have trouble paying for medicines?: No Do you have trouble getting transportation to medical appointments?: No Do you have trouble paying your heating and electricity bill?: No Do you have trouble taking care of your child, family member or friend?: No Do you have trouble with day-to-day activities such as bathing, preparing meals, shopping, managing finances, etc.?: No Are you currently unemployed and looking for a job?: No Are you interested in more education?: No Please select the resources that you would like help with: None Currently or been in a relationship where the following occur: I choose not to answer THRIVE Score: 0 AUDIT C Alcohol Use Questionnaire (AUDIT-C) 1. How often do you have a drink containing alcohol?: Never 3. How often do you have six or more drinks on one occasion?: Never Total Score: 0 LANG-7 AMB Questionnaire LANG-7 Date LANG - 7 assessed: 11/16/23 Feeling nervous, anxious, or on edge: 0 = Not at all Not being able to stop or control worryin = Not at all Source: Developed by Drs. Mike Allison, Kayla Landa, Nikhil Zafar and colleagues, with an educational jyothi from [email or web address]. Physical exam (Primary Care) Vital Signs: Last Vital Signs Temp 97.9 F 05/15/25 09:38 Pulse 54 05/15/25 09:38 Resp 14 05/15/25 09:38 BP 142/72 H 05/15/25 09:51 Pulse Ox 97 05/15/25 09:38 Oxygen Delivery Method Room Air 05/15/25 09:38 BMI result Body Mass Index 27.6 Tobacco/Smoking Status: Tobacco use Status Tobacco use date assessed 05/15/25 05/15/25 09:45 Patient Tobacco Use Status Never used Tobacco 05/15/25 09:45 e-Cigarette/Vaping Use Never Used 05/15/25 09:45 Thrive Assessment: Date of Thrive Assessment Date Thrive assessed 02/07/25 05/15/25 09:45 Currently or been in a relationship where the following occur: I choose not to answer Const Orientation/consciousness: patient oriented x3 HENMT Ears: hearing grossly normal bilaterally Neck Thyroid: Thyroid normal Lymphatic: no lymphadenopathy noted Resp Auscultation: clear to auscultation bilaterally Cardio Rate: regular rate Rhythm: regular rhythm Heart sounds: S1 normal heart sound present and S2 normal heart sound present GI Inspection: Yes normal to inspection Palpation (GI): Soft to palpation and Other GI palpation findings present (nontender, no cva tenderness) Auscultation: normoactive bowel sounds Rectal Exam - Female: deferred Skin General skin exam: no rashes or lesions noted Neuro General: patient oriented x3, gait normal and no focal motor deficits Results AMB Hemoglobin A1c AMB Hemoglobin A1c 7.5 % Last Edit by Carmen Broderick CMA on 05/15/25 09:59 Results Reviewed Results Reviewed: Laboratory Last Values Hgb A1c (Clinic) 7.5 % (4.0-6.0) H 05/15/25 09:58 Laboratory Tests 05/13/25 05/13/25 05/13/25 08:19 08:25 09:35 WBC 6.1 RBC 4.42 Hgb 12.9 Hct 39.7 Plt Count 228 Sodium 140 Potassium 4.6 Chloride 106 Creatinine 0.70 Estimated GFR > 60 Hgb A1c (Clinic) Hemoglobin A1c % 7.1 H AST 19 ALT 11 TSH 0.46 Urine Color Yellow Urine Appearance Clear Urine pH 7.0 Ur Specific Irving 1.020 Urine Protein Negative Urine Glucose (UA) >=1000 H Urine Ketones Negative Urine Blood Trace H Urine Nitrite Negative Ur Leukocyte Esterase Moderate (2+) H Urine RBC 0-2 Urine WBC 11-20 H Ur Squamous Epith Cells 6-10 Urine Bacteria Trace Hyaline Casts 0-2 Urine Creatinine 30.58 Urine Microalbumin < 5.0 Microalb/Creat Ratio TNP 05/15/25 09:58 WBC RBC Hgb Hct Plt Count Sodium Potassium Chloride Creatinine Estimated GFR Hgb A1c (Clinic) 7.5 H Hemoglobin A1c % AST ALT TSH Urine Color Urine Appearance Urine pH Ur Specific Irving Urine Protein Urine Glucose (UA) Urine Ketones Urine Blood Urine Nitrite Ur Leukocyte Esterase Urine RBC Urine WBC Ur Squamous Epith Cells Urine Bacteria Hyaline Casts Urine Creatinine Urine Microalbumin Microalb/Creat Ratio Coding Level of Care Code Est Pt Level 4 (34911) Complex EM visit Add On G2211 Diagnoses Primary hypertension I10 Hypertension type: primary hypertension Dyslipidemia E78.5 Well controlled type 2 diabetes mellitus E11.9 Assessment & Plan Assessment & Plan (1) Hypertension: Code(s): I10 - Essential (primary) hypertension Category: Medical Qualifiers: Hypertension type: primary hypertension Qualified Code(s): I10 - Essential (primary) hypertension Plan: increase to 10 mg bid (2) Dyslipidemia: Code(s): E78.5 - Hyperlipidemia, unspecified Category: Medical Plan: We will continue to monitor (3) Well controlled type 2 diabetes mellitus: Code(s): E11.9 - Type 2 diabetes mellitus without complications Category: Medical Plan: There is a discrepancy between the point of care A1c in the lab A1c. Given that her blood sugars at home have been about 130 and she has been well-controlled with this current regimen I will continue current regimen and plan to recheck in 3 months. Plan She will call me if she does not hear from GI. Orders: Orders AMB Hemoglobin A1c Today E11.9 - Type 2 diabetes mellitus without complications Glutamic acid decarboxylase Ab Today E11.9 - Type 2 diabetes mellitus without complications, E78.5 - Hyperlipidemia, unspecified, I10 - Essential (primary) hypertension C Peptide Today E11.9 - Type 2 diabetes mellitus without complications, E78.5 - Hyperlipidemia, unspecified, I10 - Essential (primary) hypertension Islet Cell Antibody Scrn/Titer Today E11.9 - Type 2 diabetes mellitus without complications, E78.5 - Hyperlipidemia, unspecified, I10 - Essential (primary) hypertension Medications: New lisinopril 10 mg PO BID 180 tabs 2RF Refilled empagliflozin (Jardiance) 25 mg PO DAILY 90 tabs 3RF levothyroxine 125 mcg PO DAILY 90 tabs 3RF semaglutide (Ozempic) 2 mg (0.75 mL) subcut QWEEK 3 mL 6RF Discontinued lisinopril Discontinued Reason: Doctor's Order 5 mg PO BID 180 tabs 1RF Patient Instructions: [phone]? -[facility] number- if you can;t get in urgently please call us back
[2025-05-15 09:38] VITALS: BP 146/76; PULSE 54; RESP 14; TEMP 36.6; O2SAT 97; BMI 27.6
[2025-05-15 09:51] VITALS: BP 142/72
== END 2025-05-15 10:20 | disposition home or self-care (01) ==
LOC: HO.HMCFM 09:31
PROVIDERS: PCP Physician Assistant; Visit Provider Physician Assistant
DX: I10 Essential (primary) hypertension (principal); E78.5 Hyperlipidemia, unspecified; E11.9 Type 2 diabetes mellitus without complications

== ENCOUNTER 2025-05-15 09:30 | Outpatient (REF) | payer MEDICARE, SELFPAY | END 2025-05-15 09:31 | disposition home or self-care (01) | LOC: HO.WFDLDS 09:30 | PROVIDERS: PCP Physician Assistant; Visit Provider Physician Assistant | DX: E78.5 Hyperlipidemia, unspecified (principal); I10 Essential (primary) hypertension; E11.9 Type 2 diabetes mellitus without complications | CPT/HCPCS: 36415; 83036; 84681; 86341; 99212 ==